=== PATIENT | male | born 1995 | race Caucasian/White ===

== ENCOUNTER → 2023-08-11 11:26 | Outpatient (REF) | payer BC, SELFPAY | LOC: RAD 11:26 | PROVIDERS: ATTENDING PHYSICIAN Nurse Practitioner Family | DX: R10.9 Unspecified abdominal pain (principal) | CPT/HCPCS: 74177; Q9967 ==

== ENCOUNTER 2023-08-24 16:11 | Emergency (ER) | payer BC, SELFPAY ==
[2023-08-24 16:23] VITALS: BP 124/72
[2023-08-24] MEDS: MOTRIN 600 MG PO (16:47)
--- NOTE | 2023-08-24 16:47 | ED.GENMED ---
History of Present Illness
General
Chief Complaint: Musculo-Skeletal Complaint
Source: patient
Time Seen by Provider: 08/24/23 16:37
History of Present Illness
History of Present Illness:
28-year-old male with past medical history of anxiety and depression presenting the emergency department for evaluation after he injured his left little finger while playing basketball noting a deformity at the PIP joint. Patient is right-hand
dominant, no other injuries were sustained. He notes increased pain with attempted movement.
Past History
Past History
ED Past Medical History: Psychiatric
ED Past Surgical History: Tonsilectomy
Social History
Tobacco: Non-smoker
Alcohol: Occasional
Drug: None
Personal: Single
Living: alone
Employment: Employed
Review of Systems
Review of Systems
All Other Systems: ROS reviewed and negative except as documented in HPI and ROS
Phy Exam
Physical Exam
Physical Exam:
GENERAL: Alert , in no apparent distress
EYE: conjunctiva clear
Head: Normocephalic atraumatic
NECK: Supple,
ENT: mmm.
LUNGS: no acute respiratory distress
NEUROLOGICAL: Alert and oriented
SKIN: Warm and dry, skin intact.
MUSCULOSKELETAL: Left hand: Patient's left little finger is held at flexion at the PIP joint with inability to extend on his own without pain. There is pain with palpation overlying the proximal portion of the middle phalanx with small ecchymosis
and soft tissue swelling. Sensation is grossly intact to light touch.
PSYCH: Normal and appropriate interaction.
Scores
Heart Failure Risk
Heart Failure Risk Score: Not Applicable
Heart Score for Chest Pain Patients
STEMI patient?: Not applicable
Withdrawal Assessment of Alcohol
Withdrawal Assessment Completed?: Not applicable
Course
Orders/Labs/Results
Orders:
Orders
08/24/23 16:41
Ibuprofen [Motrin] 600 mg PO NOW STA
CR Hand - Left Min 3 Views Urgent
Comment:
Reason For Exam: dislocation vs fracture little finger, pain at PIP
08/24/23 17:10
CR Hand - Left 2 Views Urgent
Comment:
Reason For Exam: reduction
Vital Signs
Initial and Last Documented VS:
Initial Vital Signs
Temp Pulse Resp BP Pulse Ox
98.4 F 105 18 124/72 96
08/24/23 16:23 08/24/23 16:23 08/24/23 16:23 08/24/23 16:23 08/24/23 16:23
Last Documented Vital Signs
Temp Pulse Resp BP Pulse Ox
98.4 F 105 18 124/72 96
08/24/23 16:23 08/24/23 16:23 08/24/23 16:23 08/24/23 16:23 08/24/23 16:23
Procedures
Joint/Fracture Reduction
Left Fifth Finger:
Indication for procedure:: Proximal and middle phalanx dislocation
Procedure completed by: Tiesha
Joint reduced: without anesthesia
Injury was: closed
Post reduction exam: stable
Capillary Refill: normal
Normal distal neurovascular exam?: Yes
MDM/Problems Addressed
Differential Diagnosis Includes:
Dislocation, fracture, tendon rupture, contusion
MDM/Problems Addressed:
28-year-old male presenting emergency department for evaluation of left little finger injury while playing basketball. Deformity noted. X-ray ordered. Motrin ordered for pain. Disposition pending
*Radiology
Radiology exam reviewed: preliminary read by ED provider (middle phalynx dislocation)
*Pulse Oximetry
Patient hypoxic: no
*Critical Care Note
Total Time (30-74mins, 75-104mins- exclusive of procedures): Not Applicable
Patient Management
Escalation/DeEscalation of care consider admission/obs:
Patient's finger reduced without difficulty. Placed in a finger splint. Reduction film obtained. No fracture. Stable for discharge home and outpatient follow-up as needed.
ED Attending Note
-
Portions of this chart may have been created with voice recognition software.� Occasional wrong word or��sound alike� substitutions may have occurred due to the inherent limitations of voice recognition software.
Discharge Plan
Departure
Patient Disposition: Home (Routine Discharge)
Date of Disposition: 08/24/23
Time of Disposition: 17:51
Patient with high blood pressure during this ER visit?: No
Discharge Problem:
Dislocation of proximal interphalangeal joint of left little finger
Instructions: Finger Dislocation (DC)
Prescriptions:
No Action
Biaxin
500 mg PO DAILY
Vicodin 5-300 mg Tablet
PRN (Reason: pain)
Patient Comments:
not sure of strength
ondansetron HCl 4 MG tablet
4 mg PO Q8HPRN PRN (Reason: for vomiting) Qty: 14 0RF
Referrals:
Shazia Garcia I., DO [Active] - (Ortho)
Interventions
Interventions:
*Risk Screen - Suicide Last Done: 08/24/23 17:00
*General Assessment Last Done: 08/24/23 17:00
*Neglect/Abuse Screening Last Done: 08/24/23 17:00
ED- Fall Risk Assessment Last Done: 08/24/23 17:55
*Nursing Disposition Last Done: 08/24/23 18:22
ED-Musculoskeletal Assessment Last Done: 08/24/23 17:00
Discharge Date and Time
Discharge Date/Time: 08/24/23 18:25
Print Language: ESTONIAN
== END 2023-08-24 18:25 | disposition home or self-care (01) ==
LOC: EMR 16:11
PROVIDERS: EMERGENCY PHYSICIAN Emergency Medicine; FAMILY PHYSICIAN Nurse Practitioner Family
DX: S63.287A Dislocation of proximal interphalangeal joint of left little finger, initial encounter (principal); W21.05XA Struck by basketball, initial encounter
CPT/HCPCS: 99283; 26770; 73120; 73130

== ENCOUNTER → 2023-12-30 13:32 | Outpatient (REF) | payer BC, SELFPAY | LOC: RAD 13:32 | PROVIDERS: ATTENDING PHYSICIAN Internal Medicine Gastroenterology; FAMILY PHYSICIAN Family Medicine | DX: R93.5 Abnormal findings on diagnostic imaging of other abdominal regions, including retroperitoneum (principal) | CPT/HCPCS: 74177; Q9967 ==

== ENCOUNTER → 2024-01-12 09:20 | Outpatient (REF) | payer BC, SELFPAY | LOC: HWRAD 09:20 | PROVIDERS: ATTENDING PHYSICIAN Internal Medicine Gastroenterology; FAMILY PHYSICIAN Family Medicine | DX: R93.5 Abnormal findings on diagnostic imaging of other abdominal regions, including retroperitoneum (principal) | CPT/HCPCS: 76700 ==

== ENCOUNTER → 2024-09-14 10:30 | Outpatient (REF) | payer BC, SELFPAY | LOC: HWRAD 10:30 | PROVIDERS: ATTENDING PHYSICIAN Nurse Practitioner Family | DX: M25.561 Pain in right knee (principal); Z79.811 Long term (current) use of aromatase inhibitors | CPT/HCPCS: 73564; 77080 ==

== ENCOUNTER → 2024-09-21 09:32 | Outpatient (REF) | payer BC, SELFPAY | LOC: HWRAD 09:32 | PROVIDERS: ATTENDING PHYSICIAN Specialist; FAMILY PHYSICIAN Family Medicine | DX: R79.89 Other specified abnormal findings of blood chemistry (principal) | CPT/HCPCS: 76770 ==